=== PATIENT | male | born 1950 | race Caucasian/White ===

== ENCOUNTER → 2016-09-26 | Outpatient (CLI) | payer MEDICARE, OTHER ==
[~2016-09-26] MED LIST: AMBIEN 10MG10 MG PO; AMBIEN10 MG PO; ASPI325T6 PO; ASPIRIN 81M81 MG/TA2 PO; ASPIRIN E.C. 8181 MG PO; CEPHALEXIN500 M1 PO; DESYREL 50MG50 MG PO; GLIPIZIDE5 MG PO; GLUCOPHAGE500 MG/TAB PO; GLUCOTROL 5M5 MG/TAB PO; GOOD NEIGH1200 MG/15 PO; HCTZ PO; HCTZ12.5TAB PO; LISINOPRIL20 MG PO; METAMUCIL3.4 GM/DOS PO; MULTI VITAMINS1 TAB PO; NORCO 325 MG-51 TAB PO; NORCO 325 MG-7.1 TAB PO; PRILOSEC 20MG20 MG PO; PRILOTC PO; PRINZIDE 12.5 M1 TA1 PO; ROXICODONE 55 MG/TAB PO; SENOKOT8.6 MG PO; SIMVASTATIN40 MG PO; TYLENOL 500MG500 MG PO; ZESTRIL 20MG TA20 MG PO; ZESTRIL40 MG; ZOCOR 40MG40 MG PO; ZYLOPRIM 300MG300 MG PO
== END ==
LOC: COL.RAD 08:30
DX: M25.551 Pain in right hip (principal)
CPT/HCPCS: J3301; Q9967

== ENCOUNTER 2016-12-02 10:52 | Inpatient (IN) | payer MEDICARE, OTHER ==
[~2016-12-02] VITALS: Ht 172.7 cm; Wt 94.0 kg
[~2016-12-02 10:52] MED LIST changes: -ASPI325T6 PO; -GOOD NEIGH1200 MG/15 PO; -METAMUCIL3.4 GM/DOS PO; -NORCO 325 MG-7.1 TAB PO; -ROXICODONE 55 MG/TAB PO; -SENOKOT8.6 MG PO; -TYLENOL 500MG500 MG PO; -ZYLOPRIM 300MG300 MG PO
[2017-01-09] VITALS (12 sets, daily range): BP systolic 92–123; BP diastolic 53–84; PULSE 46–88; TEMP 97.8–98.9
[2017-01-09] MEDS ORDERED: ZYLOPRIM 300MG300 MG PO (09:27)
[2017-01-09] MEDS ORDERED: METAMUCIL3.4 GM/DOS PO (09:27)
[2017-01-10 03:30] VITALS: BP 99/54; PULSE 96; TEMP 98.7
[2017-01-10 06:22] LABS: HEMATOCRIT 30.9 % (42.0-52.0); HEMOGLOBIN 10.2 g/dl (13.5-18.0)
[2017-01-10 07:14] VITALS: BP 110/59; PULSE 71; TEMP 98.2
[2017-01-10 11:34] VITALS: BP 116/61; PULSE 52; TEMP 98
[2017-01-10 15:51] VITALS: BP 117/63; PULSE 64; TEMP 98
[2017-01-10 21:22] VITALS: BP 123/68; PULSE 68; TEMP 98
[2017-01-11 04:09] VITALS: BP 110/56; PULSE 60; TEMP 98.6
[2017-01-11 06:05] LABS: HEMATOCRIT 29.8 % (42.0-52.0); HEMOGLOBIN 9.7 g/dl (13.5-18.0)
[2017-01-11 07:26] VITALS: BP 112/63; PULSE 63
[2017-01-11 11:50] VITALS: BP 112/73; PULSE 61; TEMP 98.2
[2017-01-11] MEDS ORDERED: ASPI325T6 PO (12:55)
[2017-01-11] MEDS ORDERED: TYLENOL 500MG500 MG PO (12:56)
[2017-01-11] MEDS ORDERED: SENOKOT8.6 MG PO (13:00)
[2017-01-11] MEDS ORDERED: GOOD NEIGH1200 MG/15 PO (13:01)
[2017-01-11] MEDS ORDERED: ROXICODONE 55 MG/TAB PO (13:02)
[2017-01-11] MEDS ORDERED: NORCO 325 MG-7.1 TAB PO (13:03)
== END 2017-01-11 13:45 | disposition home or self-care (01) | DRG 468 ==
LOC: JCC 01-09 07:30 → SURG 01-09 07:30 → JCC 01-09 07:37
PROVIDERS: Orthopaedic Surgery
PROC: 0SPB09Z Removal of Liner from Left Hip Joint, Open Approach (ICD-10-PCS; 2017-01-09)
PROC: 0SUE09Z Supplement Left Hip Joint, Acetabular Surface with Liner, Open Approach (ICD-10-PCS; 2017-01-09)
PROC: 0SPS0JZ Removal of Synthetic Substitute from Left Hip Joint, Femoral Surface, Open Approach (ICD-10-PCS; 2017-01-09)
PROC: 0SRS0JZ Replacement of Left Hip Joint, Femoral Surface with Synthetic Substitute, Open Approach (ICD-10-PCS; principal; 2017-01-09 17:30)
DX: T84.061A Wear of articular bearing surface of internal prosthetic left hip joint, initial encounter (principal); T84.84XA Pain due to internal orthopedic prosthetic devices, implants and grafts, initial encounter; I10 Essential (primary) hypertension; E11.42 Type 2 diabetes mellitus with diabetic polyneuropathy; Z87.891 Personal history of nicotine dependence; M21.752 Unequal limb length (acquired), left femur
CPT/HCPCS: A4315; A9284; C1776; J0690; J1100; J2250; J2405; J2704; J3010; J7030

== ENCOUNTER → 2016-12-12 | Outpatient (CLI) | payer MEDICARE, OTHER ==
[~2016-12-12] MED LIST changes: +ASPI325T6 PO; +GOOD NEIGH1200 MG/15 PO; +METAMUCIL3.4 GM/DOS PO; +NORCO 325 MG-7.1 TAB PO; +ROXICODONE 55 MG/TAB PO; +SENOKOT8.6 MG PO; +TYLENOL 500MG500 MG PO; +ZYLOPRIM 300MG300 MG PO
== END ==
LOC: COL.LAB 14:51
DX: Z96.642 Presence of left artificial hip joint (principal)

== ENCOUNTER → 2016-12-20 | Outpatient (CLI) | payer MEDICARE, OTHER ==
[2016-12-20 11:53] LABS: HEMATOCRIT 37.5 % (42.0-52.0); HEMOGLOBIN 12.3 g/dl (13.5-18.0); MEAN CELL VOLUME 96 fl (80.0-100.0); MEAN CORPUSCULAR HEMOGLOBIN 32 pg (27.0-31.0); MEAN CORPUSCULAR HGB CONC 33 g/dl (33.0-37.0); PLATELET COUNT 184 K/mm3 (130-400); REDCELL DISTRIBUTION WIDTH-CV 14.5 % (11.5-14.5); WHITE BLOOD COUNT 5.3 K/mm3 (4.8-10.8)
[2016-12-20 12:20] LABS: ERYTHROCYTE SEDIMENTATION RATE 14 mm/hr (0-30)
== END ==
LOC: COL.LAB 11:03
PROVIDERS: Orthopaedic Surgery
DX: M25.552 Pain in left hip (principal)

== ENCOUNTER → 2016-12-29 | Outpatient (CLI) | payer MEDICARE, OTHER ==
[2016-12-29 16:33] LABS: HIV 1/2 Antibodies Non-Reactive; HIV-1p24 Antigen Non-Reactive
== END ==
LOC: COL.LAB 15:23
PROVIDERS: Orthopaedic Surgery
DX: Z01.812 Encounter for preprocedural laboratory examination (principal); M21.70 Unequal limb length (acquired), unspecified site; M25.552 Pain in left hip

== ENCOUNTER → 2017-06-15 | Outpatient (CLI) | payer MEDICARE, OTHER | LOC: COL.RAD 12:27 | DX: N43.3 Hydrocele, unspecified (principal) ==

== ENCOUNTER → 2017-10-20 | Outpatient (CLI) | payer MEDICARE, OTHER | LOC: COL.RAD 08:54 | DX: M16.11 Unilateral primary osteoarthritis, right hip (principal) | CPT/HCPCS: J3301; Q9967 ==

== ENCOUNTER 2018-03-08 15:26 | Inpatient (IN) | payer MEDICARE, OTHER ==
[~2018-03-08] VITALS: Ht 172.7 cm; Wt 101.0 kg
[2018-04-24] VITALS (10 sets, daily range): BP systolic 125–164; BP diastolic 76–95; PULSE 77–111; TEMP 98–98.8
[2018-04-24] MEDS ORDERED: FLEXERIL 1010 MG/TAB PO (09:55)
[2018-04-24] MEDS ORDERED: ASPIRIN E.C. 8181 MG PO (10:03)
[2018-04-25 00:53] VITALS: BP 135/54; PULSE 75; TEMP 97.6
[2018-04-25 04:30] VITALS: BP 106/65; PULSE 100; TEMP 98.6
[2018-04-25 06:45] LABS: BASO % 0.1 % (0.0-2.0); GRAN # 7.2 (1.4-6.5); GRAN % 82.3 % (42.2-75.2); HEMATOCRIT 36.6 % (42.0-52.0); HEMOGLOBIN 12.2 g/dl (13.5-18.0); LYMPH # 0.8 (1.2-3.4); LYMPH % 8.9 % (20.0-51.0); MEAN CELL VOLUME 91 fl (80.0-100.0); MEAN CORPUSCULAR HEMOGLOBIN 30 pg (27.0-31.0); MEAN CORPUSCULAR HGB CONC 33 g/dl (33.0-37.0); MEAN PLATELET VOLUME 9.8 fl (7.4-10.4); MONO # 0.7 (0.1-0.6); MONO % 8.2 % (1.7-9.3); PLATELET COUNT 151 K/mm3 (130-400); RED BLOOD COUNT 4.01 M/mm3 (4.20-5.60); REDCELL DISTRIBUTION WIDTH-CV 12.7 % (11.5-14.5)
[2018-04-25 06:52] LABS: CALCIUM 8.4 mg/dL (8.4-10.2); CREATININE, serum 0.99 mg/dL (0.66-1.25); POTASSIUM 4.5 mmol/L (3.4-5.0)
[2018-04-25 07:19] VITALS: BP 127/89; PULSE 93; TEMP 98.6
[2018-04-25 12:10] VITALS: BP 110/57; PULSE 83; TEMP 98.6
[2018-04-25 16:01] VITALS: BP 101/61; PULSE 80; TEMP 98.7
[2018-04-25 19:15] VITALS: BP 124/65; PULSE 81; TEMP 98.9
[2018-04-26 00:28] VITALS: BP 145/75; PULSE 64; TEMP 97.9
[2018-04-26 04:41] VITALS: BP 136/65; PULSE 76; TEMP 98
[2018-04-26] MEDS ORDERED: NORCO 325 MG-7.1 TAB PO (08:04)
[2018-04-26] MEDS ORDERED: ROXICODONE 55 MG/TAB PO (08:05)
[2018-04-26] MEDS ORDERED: ASPI325T6 PO (08:06)
[2018-04-26 10:56] VITALS: BP 115/69; PULSE 88; TEMP 98
== END 2018-04-26 14:30 | disposition home or self-care (01) | DRG 470 ==
LOC: JCC 04-24 09:13
PROVIDERS: Orthopaedic Surgery; Physician Assistant
PROC: 0SR903A Replacement of Right Hip Joint with Ceramic Synthetic Substitute, Uncemented, Open Approach (ICD-10-PCS; principal; 2018-04-24 13:55)
DX: M16.11 Unilateral primary osteoarthritis, right hip (principal); M21.70 Unequal limb length (acquired), unspecified site; E11.42 Type 2 diabetes mellitus with diabetic polyneuropathy; I10 Essential (primary) hypertension; Z87.891 Personal history of nicotine dependence; E78.5 Hyperlipidemia, unspecified
CPT/HCPCS: A4314; A4315; A9284; C1713; C1776; J0360; J0690; J1100; J2250; J2405; J2704; J3010; J7030; J7120

== ENCOUNTER → 2018-04-13 | Outpatient (CLI) | payer MEDICARE, OTHER ==
[2018-04-13 09:55] LABS: HIV 1/2 Antibodies Non-Reactive; HIV-1p24 Antigen Non-Reactive
== END ==
LOC: COL.LAB 08:17
PROVIDERS: Orthopaedic Surgery
DX: Z01.812 Encounter for preprocedural laboratory examination (principal); M16.11 Unilateral primary osteoarthritis, right hip

== ENCOUNTER → 2018-09-18 | Outpatient (CLI) | payer MEDICARE, OTHER ==
[~2018-09-18] MED LIST changes: +FLEXERIL 1010 MG/TAB PO
== END ==
LOC: COL.RAD 08:29
DX: M48.061 Spinal stenosis, lumbar region without neurogenic claudication (principal); M96.1 Postlaminectomy syndrome, not elsewhere classified; M12.88 Other specific arthropathies, not elsewhere classified, other specified site
CPT/HCPCS: A9585

== ENCOUNTER → 2022-04-13 | Outpatient (CLI) | payer MEDICARE, OTHER | LOC: COL.VAS 10:47 | DX: I65.21 Occlusion and stenosis of right carotid artery (principal) ==

== ENCOUNTER → 2022-04-28 | Outpatient (CLI) | payer MEDICARE, OTHER | LOC: COL.RAD 07:27 | DX: M34.1 CR(E)ST syndrome (principal); I65.23 Occlusion and stenosis of bilateral carotid arteries | CPT/HCPCS: Q9967 ==

== ENCOUNTER 2022-10-22 11:38 | Emergency (ER) | payer MEDICARE, OTHER ==
[~2022-10-22] VITALS: Ht 172.7 cm; Wt 100.0 kg
[2022-10-22 11:42] VITALS: TEMP 98.7
[2022-10-22] MEDS ORDERED: AMOXICILLIN 8751 TAB PO (12:21)
[2022-10-22 12:36] VITALS: BP 166/107; PULSE 74
== END 2022-10-22 12:36 | disposition home or self-care (01) ==
LOC: COL.ER 11:38
DX: S61.451A Open bite of right hand, initial encounter (principal); L03.113 Cellulitis of right upper limb; Z23 Encounter for immunization; W54.0XXA Bitten by dog, initial encounter